=== PATIENT | female | born 1945 | race Caucasian/White ===

== ENCOUNTER 2016-12-18 06:00 | Day surgery (SDC) | payer MEDICARE ==
[~2016-12-18] VITALS: Ht 167.6 cm; Wt 81.6 kg
[~2016-12-18 06:00] MED LIST: AMOXICILLIN/PO500 MG PO; CITALOPRAM20 MG PO; OMEPRAZOLE20 M2 PO; ULTRAM50 M1 PO; VITAFUSION PO; VITAMIN B-12100 MCG PO; VITAMIN C500 M6 PO; VITAMIN D3400 UNI2 PO; ZOCOR20 M1 PO
[2016-12-18 07:58] VITALS: BP 138/55
== END 2016-12-18 08:36 | disposition home or self-care (01) ==
LOC: ENDO 06:00 → ORM 09:00 → ENDO 09:00
PROVIDERS: ATTEND Surgery
PROC: 0DJD8ZZ Inspection of Lower Intestinal Tract, Via Natural or Artificial Opening Endoscopic (ICD-10-PCS; principal; 2016-12-18)
DX: K57.30 Diverticulosis of large intestine without perforation or abscess without bleeding (principal); M19.90 Unspecified osteoarthritis, unspecified site; Z87.11 Personal history of peptic ulcer disease